=== PATIENT | female | born 2000 | race Hispanic/Latino ===

== ENCOUNTER 2022-10-22 16:45 | Emergency (ER) | payer SELFPAY ==
[2022-10-22 18:00] LABS: Urine Blood 1+ (Negative); Urine Glucose Negative (Negative); Urine Protein 1+ (Negative)
[2022-10-22 18:14] LABS: Urine Bacteria <20 /HPF (<20); Urine Mucus Slight /HPF (None Seen); Urine RBC <5 /HPF (None Seen)
[2022-10-22] MEDS ORDERED: LIDOCAINE 1% MPF 2 ML AMPULE ONE (20:12)
[2022-10-22] MEDS ORDERED: CEFTRIAXONE 1000 MG/VIAL ONE (20:12)
[2022-10-22] MEDS ORDERED: AZITHROMYCIN 250 MG TAB ONE (20:12)
--- NOTE | 2022-10-22 20:39 | ER ---
Nurse's Notes [facility] Name: Amina Ortiz Age: 22 yrs Sex: Female : 2000 Arrival Date: 10/22/2022 Time: 16:50 Bed 8 Private MD: Diagnosis: UTI/ Urinary tract infection, site not specified;Encounter for screening for infections with a predominantly sexual mode of transmission Presentation: 10/22 17:08 Chief complaint: Patient states: a girl slept with my boyfriend who has genital herpes [facility] and i slept with him too cause he's my boyfriend and i want to get checked..i had vaginal discharge that was like cottage cheese. Coronavirus screen: Vaccine status: Patient reports being unvaccinated. Client denies travel out of the [place] in the last 14 days. Ebola Screen: Patient negative for fever greater than or equal to 101.5 degrees Fahrenheit, and additional compatible Ebola Virus Disease symptoms Patient denies exposure to infectious person. Patient denies travel to an Ebola-affected area in the 21 days before illness onset. Initial Sepsis Screen: Does the patient meet any 2 criteria? No. Patient's initial sepsis screen is negative. Does the patient have a suspected source of infection? No. Patient's initial sepsis screen is negative. Risk Assessment: Do you want to hurt yourself or someone else? Patient reports no desire to harm self or others. 17:08 Method Of Arrival: Ambulatory [facility] 17:08 Acuity: JULI 3 [facility] Triage Assessment: 17:11 General: Appears slender, Behavior is calm, cooperative, appropriate for age. Pain: [facility] Denies pain. 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 - Social history:: Smoking status: Patient denies any tobacco usage or history of. Screenin:13 [facility] ED Fall Risk Assessment (Adult) History of falling in the last 3 months, tw5 including since admission. Abuse screen: Denies threats or abuse. Denies injuries from another. Nutritional screening: No deficits noted. Tuberculosis screening: No symptoms or risk factors identified. Assessment: 17:30 General: Appears in no apparent distress. uncomfortable, Behavior is calm, cooperative, jl7 appropriate for age. Pain: Denies pain. Neuro: Level of Consciousness is awake, alert, obeys commands, Oriented to person, place, time, situation. Cardiovascular: Patient's skin is warm and dry. Respiratory: Airway is patent Respiratory effort is even, unlabored, Respiratory pattern is regular, symmetrical. Derm: Skin is pink, warm \T\ dry. 17:30 : Reports discharge, from vagina that is malodorous, watery, white. 7 20:13 Reassessment: Patient appears in no apparent distress at this time. Patient is alert, tw5 oriented x 3, equal unlabored respirations, skin warm/dry/pink. Vital Signs: 17:08 BP 129 / 92; Pulse 108; Resp 16; Temp 98.2; Pulse Ox 100% ; Weight 45.36 kg; Height 5 [facility] ft. 2 in. (157.48 cm); Pain 0/10; 20:43 BP 119 / 82; Pulse 105; Resp 18; Pulse Ox 96% on R/A; tw5 17:08 Body Mass Index 18.29 (45.36 kg, 157.48 cm) [facility] ED Course: 16:50 Patient arrived in ED. as 16:52 Phu Jackson PA is PHCP. cp 16:52 Phu Ken MD is Attending Physician. cp 17:11 Triage completed. [facility] 17:11 Arm band placed on right wrist. [facility] 18:03 Angelica Mendoza RN is Primary Nurse. 7 20:06 Urine --Ancillary (enter results) Sent. tw5 20:10 Wet Prep Sent. tw5 20:10 GC (GONORR/CHLAMYDIA) Probe Sent. tw5 20:13 Patient has correct armband on for positive identification. Pulse ox on. NIBP on. Door tw5 closed. 20:13 Assist provider with pelvic exam:. Patient did not have IV access during this emergency 5 room visit. 20:38 Urine Microscopic Only Sent. tw5 Administered Medications: 20:11 Drug: Rocephin (cefTRIAXone) 1 grams Route: IM; Site: right ventrogluteal; tw5 20:46 Follow up: Response: No adverse reaction 20:11 Drug: Zithromax (azithromycin) 1 grams Route: PO; 20:46 Follow up: Response: No adverse reaction 20:44 Drug: Tylenol 650 mg Route: PO; 20:46 Follow up: Response: No adverse reaction Medication: 17:30 VIS not applicable for this client. jl7 Outcome: 20:38 Discharge ordered by . gee 20:46 Discharged to home ambulatory. 20:46 Condition: good 20:46 Discharge instructions given to patient, Instructed on discharge instructions, follow up and referral plans. Demonstrated understanding of instructions, follow-up care, medications, Prescriptions given X 1. 20:46 Patient left the ED. Signatures: Leona Montana Corey, PA PA cp Leal, Jahala RN RN jl7 Cheryl Rees tw5 Tracy Callejas RN RN jh5
--- NOTE | 2022-10-22 20:39 | EDPHYS ---
Physician Documentation [facility] Name: Amina Ortiz Age: 22 yrs Sex: Female : 2000 Arrival Date: 10/22/2022 Time: 16:50 Bed 8 Private MD: ED Physician Phu Ken HPI: 10/22 17:30 This 22 yrs old Female presents to ER via Ambulatory with complaints of STD cp Exposure, Fever, chills. 17:30 The patient presents with a possible exposure to a sexually transmitted disease, cp herpes, and has been treated with nothing to date. 17:30 Patient is a 22-year-old female with no past medical history who presents to the emergency department with concern for exposure to herpes. Patient reports she is in a single partner, heterosexual relationship and had come to her attention that her partner reportedly had cheated on her with another female and possibly exposed her to herpes virus. Patient denies any rashes, sores at this time but does complain of subjective fevers chills. Patient reports noticing some vaginal discharge recently that appeared white thick but now the discharge is clear. Patient denies any abdominal and/or pelvic pain. Patient is here requesting to be tested for STIs. Patient admits to not using protection during sexual encounters. 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 - Social history:: Smoking status: Patient denies any tobacco usage or history of. ROS: 17:35 Constitutional: Positive for chills, Negative for fever, poor PO intake. cp 17:35 Eyes: Negative for injury, pain, redness, and discharge. cp 17:35 Cardiovascular: Negative for chest pain, palpitations. 17:35 Respiratory: Negative for cough, shortness of breath, wheezing. 17:35 Abdomen/GI: Negative for abdominal pain, vomiting, diarrhea, constipation. 17:35 Back: Negative for pain at rest, pain with movement. 17:35 : Positive for vaginal discharge, Negative for urinary symptoms, vaginal bleeding. 17:35 Neuro: Negative for altered mental status, headache, weakness. 17:35 All other systems are negative. Exam: 19:57 Abdomen/GI: Inspection: abdomen appears normal, Bowel sounds: active, all quadrants, Palpation: abdomen is soft and non-tender, in all quadrants. 19:57 : CVA tenderness, is absent, Pelvic Exam: Speculum exam: no bleeding is noted, no cervicitis, os that is closed, bimanual exam reveals no cervical motion tenderness, no adnexa tenderness or masses bilaterally, discharge, white, the nurse was present for the exam, Sexual behavior: the patient is sexually active, and reports a single partner, method of control is none. Vital Signs: 17:08 BP 129 / 92; Pulse 108; Resp 16; Temp 98.2; Pulse Ox 100% ; Weight 45.36 kg; Height 5 jh5 ft. 2 in. (157.48 cm); Pain 0/10; 20:43 BP 119 / 82; Pulse 105; Resp 18; Pulse Ox 96% on R/A; tw5 17:08 Body Mass Index 18.29 (45.36 kg, 157.48 cm) jh5 MDM: 17:26 Patient medically screened. eldon 18:00 Differential diagnosis: jasvir infection, ectopic , ovarian cyst, pelvic cp inflammatory disease, urinary tract infection, vaginosis. 20:37 Data reviewed: vital signs, nurses notes, lab test result(s). 20:37 I considered the following discharge prescriptions or medication management in the emergency department Medications were administered in the Emergency Department. See MAR. 20:37 Test considered but Not performed: Labs: CBC, BMP. Ultrasound transvaginal. Counseling: I had a detailed discussion with the patient and/or guardian regarding: the historical points, exam findings, and any diagnostic results supporting the discharge/admit diagnosis, lab results, the need for outpatient follow up, a family practitioner, to return to the emergency department if symptoms worsen or persist or if there are any questions or concerns that arise at home. Response to treatment: the patient's symptoms have mildly improved after treatment, and as a result, I will discharge patient. 10/22 17:13 Order name: Urine Microscopic Only 10/22 17:13 Order name: GC (GONORR/CHLAMYDIA) Probe 10/22 17:13 Order name: Wet Prep 10/22 18:00 Order name: Urine Dipstick-Ancillary; Complete Time: 19:58 EDMS 10/22 19:58 Interpretation: UKET 4+; UBLD 1+; UPROT 1+; UNIT Positive; Reviewed. cp 10/22 18:03 Order name: Urine --Ancillary (enter results) em1 10/22 18:08 Order name: Urine --Ancillary; Complete Time: 19:58 EDMS 10/22 17:13 Order name: Urine Test (obtain specimen); Complete Time: 18:01 cp 10/22 17:13 Order name: Pelvic Exam Setup; Complete Time: 17:51 cp 10/22 17:13 Order name: Urine Dipstick-Ancillary (obtain specimen); Complete Time: 18:01 cp 10/22 18:14 Order name: Urine Microscopic Only; Complete Time: 19:58 EDMS 10/22 20:12 Order name: Wet Prep; Complete Time: 20:34 EDMS 10/22 20:34 Interpretation: Reviewed. cp Administered Medications: 20:11 Drug: Rocephin (cefTRIAXone) 1 grams Route: IM; Site: right ventrogluteal; tw5 20:46 Follow up: Response: No adverse reaction tw5 20:11 Drug: Zithromax (azithromycin) 1 grams Route: PO; tw5 20:46 Follow up: Response: No adverse reaction tw5 20:44 Drug: Tylenol 650 mg Route: PO; tw5 20:46 Follow up: Response: No adverse reaction tw5 Disposition Summary: 10/22/22 20:38 Discharge Ordered Location: Home cp Problem: new cp Symptoms: have improved cp Condition: Stable cp Diagnosis - UTI/ Urinary tract infection, site not specified cp - Encounter for screening for infections with a predominantly sexual mode of cp transmission Followup: cp - With: Private Physician - When: 2 - 3 days - Reason: Recheck today's complaints Discharge Instructions: - Discharge Summary Sheet cp - Urinary Tract Infection, Adult cp - Health Maintenance, Female cp - Preventing Sexually Transmitted Infections, Adult cp Forms: - Medication Reconciliation Form cp - Thank You Letter cp - Antibiotic Education cp - Prescription Opioid Use cp Prescriptions: - cefpodoxime 100 mg Oral Tablet - take 1 tablet by ORAL route every 12 hours for 7 days take with food; 14 cp tablet; Refills: 0, Product Selection Permitted Signatures: Dispatcher [employer] Phu Kim MD MD eldon Page, Phu, ALEJO PA cp Angelica Mendoza, RN RN jl7 Cheryl Rees tw5 Tracy Callejas RN RN jh5 Corrections: (The following items were deleted from the chart) 10/23 16:19 10/22 17:30 Patient is a 22-year-old female with no past medical history who presents cp to the emergency department with concern for exposure to herpes. Patient reports she was in a heterosexual relationship and had come to her attention that her partner reportedly had cheated on her with another female and possibly exposed her to herpes virus. Patient denies any rashes, sores at this time but does complain of subjective fevers chills. Patient reports noticing some vaginal discharge recently that appeared white thick but now the discharge is clear. Patient denies any abdominal and/or pelvic pain. Patient is here requesting to be tested for STIs. cp
[2022-10-22] MEDS ORDERED: ACETAMINOPHEN 325 MG TABLET ONE (20:44)
[2022-10-22 21:27] VITALS: TEMP 98.2
[2022-10-22 21:28] VITALS: BP 119/82; O2SAT 96
[2022-10-26 11:59] LABS: C.trachomatis RNA,TMA Not Detected (Not Detected)
== END 2022-10-22 20:46 | disposition home or self-care (01) ==
LOC: ER 16:45
DX: Z11.3 Encounter for screening for infections with a predominantly sexual mode of transmission (principal); N39.0 Urinary tract infection, site not specified
CPT/HCPCS: 81003; 81015; 81025; 87210; 87490; 87590; 96372; 99284